=== PATIENT | male | born 1995 | race Two or more races ===

== ENCOUNTER 2017-11-28 12:52 | Emergency (ER) | payer MEDICAID ==
[~2017-11-28] VITALS: Ht 170.2 cm; Wt 72.6 kg
[2017-11-28 12:56] VITALS: Ht 170.2 cm; Wt 72.6 kg
[2017-11-28 15:34] VITALS: BP 120/64
== END 2017-11-28 15:34 | disposition home or self-care (01) ==
LOC: ED 12:52
DX: S01.111D Laceration without foreign body of right eyelid and periocular area, subsequent encounter (principal); X58.XXXD Exposure to other specified factors, subsequent encounter
CPT/HCPCS: 90715